=== PATIENT | male | born 1955 | race African-American/Black ===

== ENCOUNTER 2016-11-06 02:36 | Emergency (ER) | payer MEDICARE, MEDICAID ==
[~2016-11-06] VITALS: Ht 172.7 cm; Wt 113.0 kg
[~2016-11-06 02:36] MED LIST: AMLO10TA80 PO; LISI-604 PO; ROSU10TA PO; TYLENOL; WARF5TAB73 PO
[2016-11-06] MEDS ORDERED: FAMOTIDINE 20MG/2ML VIAL IV STA (03:32)
[2016-11-06] MEDS ORDERED: ONDANSETRON HCL 4MG/2ML VIAL IV STA (03:32)
[2016-11-06] MEDS ORDERED: MORPHINE SULFATE 4 MG/ML CPJ (NOT FOR IM USE) IV STA (03:32)
[2016-11-06 04:06] LABS: EOSINOPHILS % 3.6 % (0.0-5.0); HEMATOCRIT. 37.6 % (42.0-52.0); HEMOGLOBIN. 12.2 g/dL (14.0-18.0); MEAN CORPUSCULAR HEMOGLOBIN 25.4 pg (28.0-32.0); MEAN CORPUSCULAR VOLUME 78.4 fL (80.0-94.0); MEAN PLATELET VOLUME 7.6 fl (7.4-10.4); MONOCYTES % 10.2 % (2.0-8.0); NEUTROPHILS % 65.2 % (40.0-76.0); PLATELET 209 x1000/uL (130-400); RED CELL DISTRIBUTION WIDTH 16.6 % (11.6-14.6)
[2016-11-06 04:09] LABS: INR 2.1; PROTHROMBIN TIME 21.9 sec
[2016-11-06 04:19] LABS: CARBON DIOXIDE 29 mEq/L (21-32); CHLORIDE 107 mEq/L (98-107); TROPONIN I 0.07 ng/mL (0.00-0.04)
[2016-11-06] MEDS ORDERED: MORPHINE SULFATE 4 MG/ML CPJ (NOT FOR IM USE) IV ONE (05:30)
[2016-11-06 07:28] VITALS: BP 138/76
== END 2016-11-06 07:28 | disposition home or self-care (01) ==
LOC: ER 02:36
DX: R10.13 Epigastric pain (principal); I10 Essential (primary) hypertension; E78.00 Pure hypercholesterolemia, unspecified; Z86.718 Personal history of other venous thrombosis and embolism; Z79.01 Long term (current) use of anticoagulants; Z88.8 Allergy status to other drugs, medicaments and biological substances; Z98.890 Other specified postprocedural states
CPT/HCPCS: 36415; 71010; 74176; 80053; 83605; 83690; 84484; 85025; 85610; 93005; 96374; 96375; 96376; 99285; J2270; J2405; J3490